=== PATIENT | male | born 1990 ===

== ENCOUNTER 2018-02-12 19:33 | Emergency (ER) | payer OTHER ==
--- NOTE | 2018-02-12 20:07 | ED ---
Throat Pain/Nasal Congestion - HPI Summary HPI Summary: 28M presents with area of white on tongue for past month. He states the area is unchanged. He does not use chew tobacco or smoke. He denies any family history of oral cancer. He has no medical conditions. He denies any history of HIV. He has not followed up with anyone about this. He denies a sore throat. He denies any abnormal taste as well. He denies any dental pain. He denies any fevers. - History of Current Complaint Chief Complaint: [facility] Time Seen by Provider: 02/12/18 19:56 - Allergies/Home Medications Allergies/Adverse Reactions: Allergies Allergy/AdvReac Type Severity Reaction Status Date / Time No Known Allergies Allergy Verified 02/12/18 19:54 Home Medications: Home Medications Levocetirizine Dihydrochloride [Xyzal Allergy 24Hr] 5 mg PO DAILY 02/12/18 [ History Confirmed 02/12/18] PMH/Surg Hx/FS Hx/Imm Hx Endocrine/Hematology History: Denies: Hx Anticoagulant Therapy Respiratory History: Denies: Hx Asthma Infectious Disease History: No Infectious Disease History: Denies: Traveled Outside the [place] in Last 30 Days - Family History Known Family History: Negative: Blood Disorder - Social History Alcohol Use: Weekly Substance Use Type: Reports: None Smoking Status (MU): Never Smoked Tobacco Review of Systems Negative: Fever Positive: Other - white spot on tongue Negative: Chest Pain Negative: Shortness Of Breath All Other Systems Reviewed And Are Negative: Yes Physical Exam Triage Information Reviewed: Yes Vital Signs On Initial Exam: Initial Vitals Temp Pulse Resp BP Pulse Ox 98.6 F 89 16 147/86 99 02/12/18 19:45 02/12/18 19:45 02/12/18 19:45 02/12/18 19:45 02/12/18 19:45 Vital Signs Reviewed: Yes Appearance: Positive: Well-Appearing Head/Face: Positive: Normal Head/Face Inspection Eyes: Positive: Normal, EOMI, BRENDA, Conjunctiva Clear ENT: Positive: Normal ENT inspection, Pharynx normal, TMs normal, Other - 1/2cm by 1/4cm area of white with no surrounding erythema Respiratory/Lung Sounds: Positive: Clear to Auscultation, Breath Sounds Present Cardiovascular: Positive: Normal, RRR Musculoskeletal: Positive: Normal Neurological: Positive: Normal Psychiatric: Positive: Normal Diagnostics - Vital Signs Vital Signs Temp Pulse Resp BP Pulse Ox 02/12/18 19:45 98.6 F 89 16 147/86 99 - Laboratory Lab Statement: Any lab studies that have been ordered have been reviewed, and results considered in the medical decision making process. EENT Course/Dx - Course Course Of Treatment: 28M presents with area of white on tongue for past month. He states the area is unchanged. He does not use chew tobacco or smoke. He denies any family history of oral cancer. He has no medical conditions. He denies any history of HIV. He has not followed up with anyone about this. He denies a sore throat. He denies any abnormal taste as well. He denies any dental pain. He denies any fevers. on exam has 1/2cm by 1/4cm area of white on tongue that does not scrap off and no erythema around it. no risk factors for oral cancer. will have follow up with dentist for continued monitoring. will also have establish care with primary as blood pressure is elevated at this time. patient understand and agrees with plan. - Differential Diagnoses Differential Diagnoses: Other - candidasis, leukoplakia - Diagnoses Provider Diagnoses: Leukoplakia of tongue, Elevated blood pressure reading Discharge - Sign-Out/Discharge Documenting (check all that apply): Discharge/Admit/Transfer - Discharge Plan Condition: Good Disposition: HOME Referrals: No Primary Care Phys,NOPCP [Primary Care Provider] - Additional Instructions: Follow up with dentist Do not smoke or use chew tobacco Establish care with primary Return to ED if develop any new or worsening symptoms - Billing Disposition and Condition Condition: GOOD Disposition: HOME
== END 2018-02-12 20:17 | disposition home or self-care (01) ==
LOC: UCEAST 19:33
DX: K13.21 Leukoplakia of oral mucosa, including tongue (principal); R03.0 Elevated blood-pressure reading, without diagnosis of hypertension
CPT/HCPCS: 99201; G0463